=== PATIENT | female | born 1975 | race Caucasian/White ===

== ENCOUNTER → 2017-06-28 | Day surgery (SDC) | payer OTHER ==
[~2017-06-28] VITALS: Ht 167.6 cm; Wt 83.9 kg
[~2017-06-28] MED LIST: PERCOCET 325 MG1 TA2 PO
--- NOTE | 2017-06-28 09:05 | MAMMOGRAPHY REPORT ---
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 COMPARISON: Mammogram dated 06/13/2017, 10/04/2016. TECHNIQUE NEEDLE LOC: Proper informed consent is obtained from the patient after discussion of the procedure, potential risks and complications, and alternatives including declining the procedure today. Patient was given an opportunity for questions. The patient appeared to understand. The patient consented to the procedure and signed the consent form. GUIDANCE: Digital mammography. APPROACH: Lateral TARGET: Ribbon-shaped biopsy clip in the 4:00 position of the left breast, 9 cm from the nipple. ANESTHESIA: 10 mL lidocaine 2%. LOCALIZATION MARKER: Kuotuss 5 cm needle. The skin was prepped and local anesthesia administered. The needle was positioned and position assessed with mammography. The wire was hooked into position. The patient tolerated the procedure well and had no immediate complication. Diagram was marked for the surgeon. The target is located around the proximal thick thin junction of the wire, 2 cm deep to the skin with 9.5 cm of the wire remaining external to the skin. IMPRESSION: Status post left breast needle localization with wire hooked into position. The target is located around the proximal thick thin junction of the wire, 2 cm deep to the skin with 9.5 cm of the wire remaining external to the skin.
--- NOTE | 2017-06-28 11:19 | Operative Report ---
Operative/Inv Procedure Report Surgery Date: 06/28/17 Name of Procedure: Left breast biopsy with wire localization Pre-Operative Diagnosis: Left breast complex sclerosing lesion Post-Operative Diagnosis: Same Estimated Blood Loss: scant Surgeon/Metal Turner: Anette Galvan MD Anesthesia: local monitored anesthesi Specimens: Left breast biopsy Operative/Procedure Note Note: Patient was brought to the operating room on 06/28/17 for excision of a complex sclerosing lesion. Preoperative wire localization was performed and the films reviewed. 2 g of Ancef was given in the left breast was prepped and draped in a sterile fashion using ChloraPrep. Local anesthesia 1% lidocaine exception Marcaine was given and a curvilinear incision was made in the lower aspect of the breast. The wire was brought into the incision and the air concern was grasped using an Allis clamp. The specimen was removed and marked for orientation using margin map. Intraoperative x-ray confirmed the presence of the clip in specimen. Hemostasis was adequate. Deep tissue was approximated using interrupted Vicryl sutures and the skin was closed using a running Biosyn subcutaneous color stitch. Steri-Strips and sterile dressings were applied and the patient was transferred to the recovery room in satisfactory condition having tolerated the procedure well.
--- NOTE | 2017-06-28 17:57 | MAMMOGRAPHY REPORT ---
EXAMINATION: MM NEEDLE LOCALIZATION SPECIMEN FROM THE BREAST, LEFT CLINICAL INDICATION: Radiograph of excisional biopsy specimen obtained from the left breast at site of complex sclerosing lesion and papillary apocrine metaplasia. COMPARISON: Preoperative needle localization films. TECHNIQUE: Single specimen radiograph was obtained. FINDINGS: The radiograph of the excised surgical specimen shows that the hookwire is delivered intact and the marker clip is identified in the specimen. IMPRESSION: Satisfactory excision of the targeted lesion. These findings were communicated to the surgeon in the OR at the time of specimen radiography.
== END ==
LOC: STS 02:59 → CBW.IIU 07:00 → STS 07:00 → CBW.IIU 08:00 → CBW.MAMMO 08:30
DX: N60.82 Other benign mammary dysplasias of left breast (principal); Z87.891 Personal history of nicotine dependence; M17.12 Unilateral primary osteoarthritis, left knee
CPT/HCPCS: J0690; J2001; J2250